=== PATIENT | female | born 1985 ===

== ENCOUNTER 2023-06-14 08:48 | Outpatient (AMB) | payer OTHER, SELFPAY ==
--- NOTE | 2023-06-14 08:57 | A.OFFPC_ITS ---
Vital Signs 06/14/23 08:59 Height 5 ft 2 in Weight 174 lb BMI 31.8 BP 96/64 Blood Pressure Location Rt brachial Position Sitting Respiration 12 Pulse 67 Pulse Source Pulse Oximeter Temp 98.5 F Temp Source Temporal Artery Scan Pulse Oximetry (%) 99 Oxygen Delivery Method Room Air Intake Visit Reasons: rebooked from 05/09 NPV/ medication Intake Note: Patient would like to look into hearing aids as well as getting her sight checked. Patient states that she would like referrals to see someone for both. Patient would like ibuprofen for pain due to having a edward in her leg from having a broken leg as well as for back pain. Patient states that she knows she has Hep C and would like to get labs done. Patient would also like allergy medication prescribed for allergies. Patient would like to get a EKG done for methadone clinic next door. 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 Accompanied by: Self / Same As Patient Allergies Seasonal Allergies Allergy (Intermediate, Verified 06/14/23 09:36) Runny Nose sulfamethoxazole [From Bactrim] Adverse Reaction (Mild, Verified 06/14/23 09:36) Shortness of Breath trimethoprim [From Bactrim] Adverse Reaction (Mild, Verified 06/14/23 09:36) Shortness of Breath Medication List - Last Reviewed 06/14/23 by Ramila Taylor baclofen 10 mg PO TID bupropion HCl (Wellbutrin XL) 300 mg PO DAILY clonidine HCl 0.1 mg PO TID fluoxetine (Prozac) 10 mg PO DAILY fluoxetine (Prozac) 20 mg PO DAILY hydroxyzine HCl 50 mg PO BEDTIME PRN ibuprofen 800 mg PO TID PRN methadone 190 mg PO DAILY quetiapine 150 mg PO BEDTIME Tobacco use date assessed: 06/14/23 Dental Screening Dental Screen Date: 06/14/23 Did you have a dental visit in the last 12 months?: No Did you have a dental problem in the last 6 months where you did not have access to dental care?: No Was dental information given to patient?: Yes HPI HPI Comments History of Present Illness Details 37-year-old female presents to [facility] She relocated from [place] to [place] 5 months ago She notes she was last evaluated by her former PCP and had blood work done 6 mo nths ago She reports PMH significant for anxiety, depression, and Hep C. She notes she is followed by a psychiatrist monthly; her psychiatrist manages her psychotropic medications She reports h/o edward in her right lower leg. She notes she fell on ice and broke her tibia and fibular 2 years ago. She reports intermittent pain to her lower back and right lower leg. She notes she takes Ibuprofen with improvement; she request a refill. She reports history of seasonal allergies and requests an antihistamine. She reports diminished and blurry vision in the past 1 year; corrected when she tries on OTC glasses for vision impairment. She also reports decreased hearing in the past 2 years. She reports h/o IV crack/cocaine and fentanyl use. He states she has been in addiction treatment at [facility] for the past 5 months and has been sober since initiation of therapy. 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 She currently goes to [facility]. She notes her Methadone dose was increased to 190 mg and was asked to do an EKG which she has not done. She states she is not sexually active. She notes she is up-to-date on STD blood work and declines testing. [facility] Medical History (Updated 06/14/23 @ 10:19 by Kristina Tavarez CNP) Acid reflux Anxiety delivery delivered Depression Drug addiction Heart murmur Hepatitis C Prominence of intramedullary nail Right leg injury Seizures Family History (Updated 06/14/23 @ 09:32 by Shelby Bowie MA) Mother Alcoholism Father Alcoholism Maternal Grandfather Lung cancer Family/Other Alcoholism Social History Housing: Other (Sober House) Patient Tobacco Use Status: Current someday Tobacco user Tobacco use type: Cigarette Cigarettes Per Day: 10 e-Cigarette/Vaping Use: Currently Using service: No Current occupational status: employed Current occupation: [employer] Cognitive needs: No Hearing needs: Yes Vision needs: Yes Questionnaire PHQ-9 Over the last 2 weeks, how often have you been bothered by any of the following problems? 1. Little interest or pleasure in doing things: several days 2. Feeling down, depressed, or hopeless: several days 3. Trouble falling or staying asleep, or sleeping too much: several days 4. Feeling tired or having little energy: several days 5. Poor appetite or overeating: not at all 6. Feeling bad about yourself - or that you are a failure or have let yourself or your family down: not at all 7. Trouble concentrating on things, such as reading the newspaper or watching television: several days 8. Moving or speaking so slowly that other people could have noticed. Or the opposite - being so fidgety or restless that you have been moving around a lot more than usual: not at all 9. Thoughts that you would be better off or of hurting yourself in some way: not at all Total score: 5 Depression Screening Interpretation: Positive Depression Screening Follow-up: Existing condition and In treatment Source: Developed by Drs. Michael Arias, Shakira Velázquez, Massimo Dorman and colleagues, with an educational eren from [employer]. Thrive Questionnaire Date Thrive assessed: 06/14/23 I am a: Patient What is your living situation today?: I have a steady place to live Within the past 12 months, did the food you bought not last and you didn't have the money to get more?: Sometimes True Within the past 12 months, did you worry whether your food would run out before you got money to buy more?: Sometimes True Do you have trouble paying for medicines?: No Do you have trouble getting transportation to medical appointments?: Yes Do you have trouble paying your heating and electricity bill?: No Do you have trouble taking care of your child, family member or friend?: No Do you have trouble with day-to-day activities such as bathing, preparing meals, shopping, managing finances, etc.?: No Are you currently unemployed and looking for a job?: Yes Are you interested in more education?: No Please select the resources that you would like help with: Transportation and Job search/training Currently or been in a relationship where the following occur: no concerns reported AUDIT C Alcohol Use Questionnaire (AUDIT-C) 1. How often do you have a drink containing alcohol?: Never 3. How often do you have six or more drinks on one occasion?: Never Total Score: 0 ASMITA-7 AMB Questionnaire ASMITA-7 Feeling nervous, anxious, or on edge: 1 = Several days Not being able to stop or control worryin = Not at all Worrying too much about different things: 0 = Not at all Trouble relaxin = Several days Being so restless that it is hard to sit still: 1 = Several days Becoming easily annoyed or irritable: 0 = Not at all Feeling afraid as if something awful might happen: 0 = Not at all Total ASMITA-7 score (0-4 normal; 5-9 mild; 10-14 moderate; 15-21 severe): 3 Source: Developed by Drs. Michael Arias, Shakira Velázquez, Massimo Dorman and colleagues, with an educational reen from [employer]. Review of Systems Const Details: Const Denies chills, Denies fatigue, Denies fever(s), Denies headache(s) and Denies weakness ENT Denies dizziness and Denies headache(s) Card Denies chest pain, Denies lightheadedness, Denies dyspnea and Denies other (Palpitations) Resp Denies cough, Denies dyspnea, Denies wheezing and Denies other ( shortness of breath) GI Denies abdominal pain, Denies melena, Denies hematochezia, Denies change in bowel habits, Denies dyspepsia and Denies nausea Denies hematuria and Denies dysuria Musc Denies abnormal gait, Denies myalgias, Denies arthralgias, Denies numbness and Denies tingling Skin/Breast Denies rash, Denies unusual bruising and Denies wounds Neuro Denies abnormal gait, Denies dizziness, Denies headache(s), Denies memory loss, Denies numbness, Denies Sensory deficit (Neuro), Denies tingling and Denies weakness Psych Denies anxiety, Denies depression, Denies memory loss Endo Denies cold intolerance, Denies fatigue, Denies heat intolerance, Denies polydipsia and Denies polyuria Aller/Immun Denies wheezing Physical exam (Primary Care) Vital Signs: Last Vital Signs Temp 98.5 F 06/14/23 08:59 Pulse 67 06/14/23 08:59 Resp 12 06/14/23 08:59 BP 96/64 06/14/23 08:59 Pulse Ox 99 06/14/23 08:59 Oxygen Delivery Method Room Air 06/14/23 08:59 BMI result Body Mass Index 31.8 Tobacco/Smoking Status: Tobacco use Status Tobacco use date assessed 06/14/23 06/14/23 09:15 Patient Tobacco Use Status Current someday Tobacco 06/14/23 09:15 Tobacco use type Cigarette 06/14/23 09:15 e-Cigarette/Vaping Use Currently Using 06/14/23 09:15 PHQ-9: PHQ-9 Score PHQ-9: Total score 5 06/14/23 14:00 Depression Screening Interpretation: Positive Depression Screening Follow-up: Existing condition and In treatment Thrive Assessment: Date of Thrive Assessment Date Thrive assessed 06/14/23 06/14/23 09:19 Currently or been in a relationship where the following occur: no concerns reported Const Other: General: no acute distress and well developed Nutritional Appearance: well nourished Orientation/consciousness: patient oriented x3 HENIN Head: Yes normocephalic and Yes atraumatic Eyes General: appearance normal, both eyes and all related structures Pupils: Equal, round and reactive pupils present EOM: EOMs intact bilaterally Resp Effort & Inspection: normal respiratory effort Auscultation: clear to auscultation bilaterally Cardio Rate: regular rate Rhythm: regular rhythm Heart sounds: S1 normal heart sound present, S2 normal heart sound present, no gallops, no murmurs and no rubs GI Palpation (GI): No Abdominal aortic bruit present, Soft to palpation, nontender, No hepatosplenomegaly present and No Rebound tenderness present Auscultation: normal bowel sounds General: Yes no CVA tenderness Back/Spine/Pelvis Back: no CVA tenderness Cervical Spine: cervical ROM normal and No Cervical spine tenderness Thoracic/Lumbar Spine: thoraco-lumbar ROM normal, No pain with thoraco-lumbar ROM, No thoracic spinal tenderness and No lumbar spinal tenderness Extrem General: Yes normal to inspection, No edema and No calf tenderness Right lower leg tenderness Skin General: warm and dry. Normal skin color. Normal skin turgor Lesions: no lesions Rashes: no rashes Trauma: no lacerations or abrasions Wounds: no wounds Nails: normal Neuro General: patient oriented x3, gait normal and no focal neuro deficit Cranial nerves: Yes Equal, round and reactive pupils present Cognition (Neuro): normal cognition Gait exam (Neuro): Normal gait present Sensory Exam: No Sensory deficit (Neuro) Psych Appearance: grossly normal Affect: normal affect Attitude: cooperative Thought process: Normal thought process present Office Procedures Vision Screening Right Eye: 20/25 Left Eye: 20/25 Bilateral: 20/25 23984 - Vision Screening Assessment and Plan Assessment & Plan (1) Pain of right lower extremity: Code(s): M79.604 - Pain in right leg Plan: Reports h/o edward in her right lower leg. She notes she fell on ice and broke her tibia and fibular 2 years ago. She reports intermittent pain to her lower back and right lower leg. She notes she takes Ibuprofen with improvement. Right lower leg tenderness with palpation Ibuprofen refilled. Take as prescribed Warm/cold compresses encouraged Follow-up with new or worsening symptoms Verbalized understanding and agreed with treatment plan. (2) Anxiety: Code(s): F41.9 - Anxiety disorder, unspecified Plan: PHQ-9 score revealed mild depression. ASMITA-7 score is normal Continue with current treatment regimen Continue follow-up with psychiatrist as planned Routine exercise encouraged Return with new or worsening symptoms Verbalized understanding and agreed with treatment plan. (3) Depression: Code(s): F32.A - Depression, unspecified Plan: As above (4) Hepatitis C: Code(s): B19.20 - Unspecified viral hepatitis C without hepatic coma Plan: Reports history of hep C Lab ordered Referred to Gastroenterology Follow-up with concerns or symptoms Verbalized understanding and agreed with treatment plan. (5) Drug addiction: Comment: clean for 5 months as of 06/14/23 Code(s): F19.20 - Other psychoactive substance dependence, uncomplicated Plan: She reports h/o IV crack/cocaine and fentanyl use. He states she has been in addiction treatment at [facility] for the past 5 months and has been sober since initiation of therapy. Encouraged to continue with addiction treatment and to avoid drug use. EKG performed and revealed sinus bradycardia, otherwise normal sinus EKG Verbalized understanding and agreed with plan. (6) Impacted cerumen of both ears: Code(s): H61.23 - Impacted cerumen, bilateral Plan: Reports decreased hearing in the past 2 years Impacted cerumen of both ears occluding the TMs Likely cause of impaired hearing Debrox ordered. Apply to both ears as prescribed Schedule a follow-up appointment for bilateral ear irrigation following treatment with Debrox Will referred to site administrator if continued hearing impairment following cerumen removal Verbalized understanding and agreed with the treatment plan. (7) Impaired hearing: Code(s): H91.90 - Unspecified hearing loss, unspecified ear Plan: As above (8) Poor vision: Code(s): H54.7 - Unspecified visual loss Plan: Reports diminished and blurry vision in the past 1 year; corrected when she tries on OTC glasses for vision impairment (9) Seasonal allergies: Code(s): J30.2 - Other seasonal allergic rhinitis Plan: She reports history of seasonal allergies and requests an antihistamine. Cetirizine ordered. Take as prescribed Follow-up with worsening or new symptoms Verbalized understanding and agreed with treatment plan. (10) Laboratory tests ordered as part of a complete physical exam (CPE): Code(s): Z00.00 - Encounter for general adult medical examination without abnormal findings Plan: Fasting labs ordered as part of a complete physical exam. Advised to fast for at least 10 hours before getting labs drawn. May drink water Verbalized understanding and agreed with treatment plan. Orders: Orders Comprehensive [place]. Panel Fast Today Z00.00 - Encounter for general adult medical examination without abnormal findings Lipid Panel Today Z00.00 - Encounter for general adult medical examination without abnormal findings TSH reflex Free T4 Today Z00.00 - Encounter for general adult medical examination without abnormal findings Complete Blood Count Auto Diff Today Z00.00 - Encounter for general adult medical examination without abnormal findings Hepatitis B,C Profile Today B19.20 - Unspecified viral hepatitis C without hepatic coma UA CC w/rflx Micro + Cult Today Z00.00 - Encounter for general adult medical examination without abnormal findings Referrals Ophthalmology Referral H54.7 - Unspecified visual loss Gastroenterology Referral B19.20 - Unspecified viral hepatitis C without hepatic coma Medications: New ibuprofen 800 mg PO TID PRN 60 tabs 3RF pain carbamide peroxide 6.5% (Debrox) 5 drps otic (ears) DAILY 4 days 15 mL 0RF cetirizine (Zyrtec) 10 mg PO DAILY 30 days 30 tabs 3RF Coding Level of Care Code New Pt Level 4 (10384) Diagnoses Pain of right lower extremity M79.604 Anxiety F41.9 Depression F32.A Hepatitis C B19.20 Drug addiction F19.20 Impacted cerumen of both ears H61.23 Impaired hearing H91.90 Poor vision H54.7 Seasonal allergies J30.2 Laboratory tests ordered as part of a complete physical exam (CPE) Z00.00 CPT Codes Vision Screening - Vision Screenin - Vision Screening ([id number])
[2023-06-14 08:59] VITALS: BP 96/64; PULSE 67; RESP 12; TEMP 36.9; O2SAT 99; BMI 31.8
== END 2023-06-14 10:35 | disposition home or self-care (01) ==
PROVIDERS: PCP Hospitalist; Visit Provider Nurse Practitioner Family
DX: M79.604 Pain in right leg (principal); F41.9 Anxiety disorder, unspecified; F19.20 Other psychoactive substance dependence, uncomplicated; H61.23 Impacted cerumen, bilateral; F32.A Depression, unspecified; B19.20 Unspecified viral hepatitis C without hepatic coma; H54.7 Unspecified visual loss; J30.2 Other seasonal allergic rhinitis
CPT/HCPCS: 99173; 99214

== ENCOUNTER 2023-07-17 10:40 | Outpatient (AMB) | payer OTHER, SELFPAY ==
--- NOTE | 2023-07-17 10:42 | A.OFFPC_ITS ---
Vital Signs 07/17/23 10:44 Height 5 ft 2 in Weight 175 lb 6 oz BMI 32.1 BP 112/58 L Blood Pressure Location Lt brachial Position Sitting Respiration 14 Pulse 82 Pulse Source Pulse Oximeter Temp 98.9 F Temp Source Temporal Artery Scan Pulse Oximetry (%) 97 Oxygen Delivery Method Room Air Intake Visit Reasons: CPE Intake Note: Patient reports she gets BV often and is experiencing odor and discharge. [facility]. Patient reports her usual course of treatment is metronidazole tablet form for 7 days. 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 Accompanied by: Self / Same As Patient Allergies Seasonal Allergies Allergy (Intermediate, Verified 07/17/23 10:59) Runny Nose sulfamethoxazole [From Bactrim] Adverse Reaction (Mild, Verified 07/17/23 10:59) Shortness of Breath trimethoprim [From Bactrim] Adverse Reaction (Mild, Verified 07/17/23 10:59) Shortness of Breath Medication List - Last Reconciled 07/17/23 by Kristina Tavarez CNP baclofen 10 mg PO TID bupropion HCl (Wellbutrin XL) 300 mg PO DAILY cetirizine (Zyrtec) 10 mg PO DAILY 30 days clonidine HCl 0.1 mg PO TID fluoxetine (Prozac) 10 mg PO DAILY fluoxetine (Prozac) 20 mg PO DAILY hydroxyzine HCl 50 mg PO BEDTIME PRN ibuprofen 800 mg PO TID PRN methadone 190 mg PO DAILY quetiapine 150 mg PO BEDTIME Tobacco use date assessed: 06/14/23 HPI HPI Comments History of Present Illness Details 38-year-old female presents for a comple te physical exam. She established care on 06/14/2023. Routine blood labs per ordered. Was referr ed to GI and ophthalmology. She has not gotten blood work done. She notes she intends to call back to schedule an appointment with GI and ophthalmology. She reports malodorous cottage cheese vaginal discharge for the past 1 week; she attributes this to BV. No dysuria, hematuria, itching, or vaginal pain. She notes frequent BV infections which usually respond well to metronidazole. She has h/o IV crack/cocaine and fentanyl use. She states she has been in addiction treatment at [facility] for the past 6 months and has been sober since initiation of therapy. [facility] She is unsure about her last pap smear test. [facility] Medical History (Updated 07/17/23 @ 11:30 by Kristina Tavarez CNP) Right leg injury delivery delivered Prominence of intramedullary nail Hepatitis C Drug addiction Depression Anxiety Seizures Heart murmur Acid reflux Family History (Updated 06/14/23 @ 09:32 by Shelby Bowie MA) Mother Alcoholism Father Alcoholism Maternal Grandfather Lung cancer Family/Other Alcoholism Social History Housing: Other (Sober House) Patient Tobacco Use Status: Current someday Tobacco user Tobacco use type: Cigarette Cigarettes Per Day: 10 e-Cigarette/Vaping Use: Currently Using service: No Current occupational status: employed 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 Cognitive needs: No Hearing needs: Yes Vision needs: Yes Questionnaire Thrive Questionnaire Date Thrive assessed: 06/14/23 Review of Systems Const Details: Denies chills, Denies fatigue, Denies fever(s), Denies headache(s) and Denies weakness HEENT Denies change in vision, Denies dizziness, Denies headache(s), Denies hearing loss, Denies nasal congestion, Denies sinus pain, Denies sinus pressure and Denies sore throat Card Denies chest pain, Denies lightheadedness, Denies dyspnea and Denies other (palpitations) Resp Denies cough, Denies dyspnea and Denies wheezing GI Denies abdominal pain, Denies melena, Denies hematochezia, Denies change in bowel habits, Denies dyspepsia and Denies nausea Reports as per HPI Musc Denies abnormal gait, Denies myalgias, Denies arthralgias, Denies numbness and Denies tingling Skin/Breast Denies rash, Denies unusual bruising and Denies wounds Neuro Denies abnormal gait, Denies dizziness, Denies headache(s), Denies memory loss, Denies numbness, Denies Sensory deficit (Neuro), Denies tingling and Denies weakness Psych Denies anxiety, Denies depression and Denies memory loss Endo Denies cold intolerance, Denies fatigue, Denies heat intolerance, Denies polydipsia and Denies polyuria Carlos Eduardo/Lymph Denies easy bleeding and Denies easy bruising Aller/Immun Denies wheezing Physical exam (Primary Care) Vital Signs: Last Vital Signs Temp 98.9 F 07/17/23 10:44 Pulse 82 07/17/23 10:44 Resp 14 07/17/23 10:44 BP 112/58 L 07/17/23 10:44 Pulse Ox 97 07/17/23 10:44 Oxygen Delivery Method Room Air 07/17/23 10:44 BMI result Body Mass Index 32.1 Tobacco/Smoking Status: Tobacco use Status Tobacco use date assessed 06/14/23 07/17/23 10:43 Patient Tobacco Use Status Current someday Tobacco 07/17/23 10:43 Tobacco use type Cigarette 07/17/23 10:43 e-Cigarette/Vaping Use Currently Using 07/17/23 10:43 Thrive Assessment: Date of Thrive Assessment Date Thrive assessed 06/14/23 07/17/23 10:43 Const Other: General: no acute distress, well developed, alert and awake Nutritional Appearance: well nourished Orientation/consciousness: patient oriented x3 HENMT Head: Yes normocephalic and Yes atraumatic Ears: hearing grossly normal bilaterally and TM's normal bilaterally General nose exam: Normal external nose present and Normal nares present Mouth: Normal oral and palatal mucosa present and moist mucous membranes Teeth and gingiva: dentition normal Throat: Yes oropharynx normal Eyes Pupils: Equal, round and reactive pupils present and Pupil accommodation reflex normal EOM: EOMs intact bilaterally Neck Neck: Yes normal visual inspection, Yes no lymphadenopathy and Yes trachea midline Thyroid: Thyroid normal Carotids: no bruits Lymphatic: no lymphadenopathy noted Chest Chest palpation & inspection: normal inspection of the chest Resp Effort & Inspection: normal respiratory effort Auscultation: clear to auscultation bilaterally Cardio Rate: regular rate Rhythm: regular rhythm Heart sounds: S1 normal heart sound present, S2 normal heart sound present, no gallops, no murmurs and no rubs Bruits: no abdominal aortic bruits and no carotid bruits GI Palpation (GI): No Abdominal aortic bruit present, Soft to palpation, nontender, No hepatosplenomegaly present and No Rebound tenderness present Auscultation: normal bowel sounds General: Yes no CVA tenderness Back/Spine/Pelvis Back: no CVA tenderness Cervical Spine: cervical ROM normal and No Cervical spine tenderness Thoracic/Lumbar Spine: thoraco-lumbar ROM normal, No pain with thoraco-lumbar ROM, No thoracic spinal tenderness and No lumbar spinal tenderness Skin General: warm and dry. Normal skin color. Normal skin turgor Lesions: no lesions Rashes: no rashes Trauma: no lacerations or abrasions Wounds: no wounds Nails: normal Neuro General: patient oriented x3, gait normal and CN's II-XI intact bilaterally Cranial nerves: Yes Equal, round and reactive pupils present Cognition (Neuro): normal cognition Gait exam (Neuro): Normal gait present Motor exam (neuro): 5/5 motor strength present throughout Sensory Exam: No Sensory deficit (Neuro) Deep tendon reflexes (DTR's): Right patellar reflex intensity grade: 2+ and Left patellar reflex intensity grade: 2+ Extrem General: Yes normal to inspection, No edema and No calf tenderness Psych Appearance: grossly normal Affect: normal affect Attitude: cooperative Thought process: Normal thought process present Assessment and Plan Assessment & Plan (1) Normal physical examination, routine: Code(s): Z00.00 - Encounter for general adult medical examination without abnormal findings Plan: No significant physical restrictions or limitations noted Continue with current psychotropic drugs treatment regimen Continue follow-up with psychiatrist as planned Encouraged to schedule an appointment for gastroenterology and ophthalmology Advised to get fasting routine blood work done and schedule an appointment for labs review Return with symptoms or concerns Verbalized understanding and agreed with treatment plan. (2) BV (bacterial vaginosis): Code(s): N76.0 - Acute vaginitis; B96.89 - Other specified bacterial agents as the cause of diseases classified elsewhere Plan: She reports malodorous cottage cheese vaginal discharge for the past 1 week; she attributes this to BV. No dysuria, hematuria, itching, or vaginal pain. She notes frequent BV infections which usually respond well to metronidazole. BV and vaginal yeast infection is likely Metronidazole and Monistat ordered. Take as prescribed Will avoid prescribing fluconazole due to interactions with multiple psychotropic medications that the patient is currently on Return with worsening or new signs and symptoms Verbalized understanding and agreed with treatment plan. (3) Vaginal yeast infection: Code(s): B37.31 - Acute candidiasis of vulva and vagina Plan: As above (4) Pap smear for cervical cancer screening: Code(s): Z12.4 - Encounter for screening for malignant neoplasm of cervix Plan: She is unsure of her last Pap smear test [facility]erred to [facility] selling [facility] Orders: Referrals ANALYTICAL LAB ANALYST Referral Z12.4 - Encounter for screening for malignant neoplasm of cervix Medications: New metronidazole 500 mg PO BID 7 days 14 tabs 0RF miconazole nitrate (Monistat 3) 1 appful vaginal BEDTIME 3 days 15 grams 0RF Coding Level of Care Code Est Pt Prev Care 40-64y(09295) Diagnoses Normal physical examination, routine Z00.00 BV (bacterial vaginosis) N76.0; B96.89 Vaginal yeast infection B37.31 Pap smear for cervical cancer screening Z12.4
[2023-07-17 10:44] VITALS: BP 112/58; PULSE 82; RESP 14; TEMP 37.2; O2SAT 97; BMI 32.1
== END 2023-07-17 11:29 | disposition home or self-care (01) ==
PROVIDERS: PCP Nurse Practitioner Family; Visit Provider Nurse Practitioner Family
DX: Z00.00 Encounter for general adult medical examination without abnormal findings (principal); N76.0 Acute vaginitis; B96.89 Other specified bacterial agents as the cause of diseases classified elsewhere; B37.31 Acute candidiasis of vulva and vagina; Z12.4 Encounter for screening for malignant neoplasm of cervix
CPT/HCPCS: 99396